=== PATIENT | female | born 1990 | race Caucasian/White ===

== ENCOUNTER 2021-02-08 07:00 | Day surgery (SDC) | payer BC, OTHER ==
[~2021-02-08 07:00] MED LIST: Lactated Ringers 1,000 ML IV SCH; Lidocaine 1%/Sod Bicarbonate in NS 8.4% 1 ML Syringe IDERM PRN; Sodium Chloride 0.9% 10 ML Syringe FLUSH PRN
[2021-02-08] MEDS ORDERED: Lidocaine 1% with EPINEPHrine 1:100,000 10 ML MDV ONE ×2 (07:25→07:28)
[2021-02-08] MEDS ORDERED: Lidocaine 1% 30 ML SDV ONE (07:28)
--- NOTE | 2021-02-08 07:42 | PCM.PREANE ---
Preanesthetic Assessment - Procedure Proposed Procedure: cold knife cone biopsy - Anesthesia/Transfusion/Family Hx Anesthesia History: Prior Anesthesia Without Reaction Family History of Anesthesia Reaction: No Transfusion History: No Prior Transfusion(s) Intubation History: Unknown - Review of Systems General: No Symptoms Pulmonary: No Symptoms Cardiovascular: No Symptoms Gastrointestinal: No Symptoms Neurological: No Symptoms Other: Reports: None - Physical Assessment NPO Status Date: 02/07/21 NPO Status Time: 21:00 Vital Signs: Last Vital Signs Temp 36.3 C 02/08/21 07:10 Pulse 75 02/08/21 07:10 Resp 17 02/08/21 07:10 BP 141/87 H 02/08/21 07:10 Pulse Ox 97 02/08/21 07:10 Height: 1.55 m Weight: 99 kg ASA Class: 3 Mental Status: Alert & Oriented x3 Airway Class: Mallampati = 2 Dentition: Reports: Normal Dentition Thyro-Mental Finger Breadths: 3 Mouth Opening Finger Breadths: 5 ROM/Head Extension: Full - Allergies Allergies/Adverse Reactions: Allergies Allergy/AdvReac Type Severity Reaction Status Date / Time Penicillins Allergy Other Verified 02/07/21 14:52 - Blood Blood Available: No - Anesthesia Plan Pre-Op Medication Ordered: None - Acknowledgements Anesthesia Type Planned: MAC Pt an Appropriate Candidate for the Planned Anesthesia: Yes Alternatives and Risks of Anesthesia Discussed w Pt/Guardian: Yes Pt/Guardian Understands and Agrees with Anesthesia Plan: Yes PreAnesthesia Questionnaire HEENT History: Reports: Impaired Vision Cardiovascular History: Reports: None Respiratory History: Reports: Asthma Gastrointestinal History: Reports: None Genitourinary History: Reports: Other (See Below) Other Genitourinary History: HPV, RENAY III, genital warts [employer] History: Reports: Polycystic Ovaries, , Other (See Below) Other OB/BYN History: gestational hypertension Musculoskeletal History: Reports: None Neurological History: Reports: None Psychiatric History: Reports: None Endocrine/Metabolic History: Reports: None Hematologic History: Reports: None Immunologic History: Reports: None Oncologic (Cancer) History: Reports: None Dermatologic History: Reports: None - Infectious Disease History Infectious Disease History: Reports: None - Past Surgical History Head Surgeries/Procedures: Reports: None HEENT Surgical History: Reports: Myringotomy w Tube(s), Oral Surgery Cardiovascular Surgical History: Reports: None Respiratory Surgical History: Reports: None GI Surgical History: Reports: None Female Surgical History: Reports: Section Male Surgical History: Reports: None Endocrine Surgical History: Reports: None Neurological Surgical History: Reports: None Musculoskeletal Surgical History: Reports: None Oncologic Surgical History: Reports: None Dermatological Surgical History: Reports: None - SUBSTANCE USE Tobacco Use Status *Q: Never Tobacco User Recreational Drug Use History: No - HOME MEDS Home Medications: Home Meds Berberine 1 tab PO BID 02/07/21 [History] Ibuprofen 600 mg PO Q4H PRN 02/07/21 [History] cycloSPORINE [Restasis Multidose] 1 dose EYEBOTH BID 02/07/21 [History] prednisoLONE acetate [Pred Forte 1% Ophth Susp] 1 dose EYEBOTH BID PRN 02/07/21 [History] - CURRENT (IN HOUSE) MEDS Current Meds: Current Medications Lactated Ringer's (Ringers, Lactated) 1,000 mls @ 125 mls/hr IV ASDIRECTED DINORAH Stop: 02/08/21 23:00 Lidocaine/Sodium Bicarbonate (Lidocaine 1%/Sod Bicarbonate In Ns 8.4% 1 Ml Syringe) 0.25 ml IDERM ONETIME PRN PRN Reason: Prior to IV Start Stop: 02/08/21 18:00 Sodium Chloride (Sodium Chloride 0.9% 10 Ml Syringe) 10 ml FLUSH ASDIRECTED PRN PRN Reason: Keep Vein Open Stop: 02/08/21 18:00 Discontinued Medications Lidocaine HCl (Lidocaine 1% 30 Ml Sdv) Confirm Administered Dose 30 ml .ROUTE .STK-MED ONE Stop: 02/08/21 07:29 Lidocaine/Epinephrine (Lidocaine 1% With Epinephrine 1:100,000 10 Ml Mdv) Confirm Administered Dose 10 ml .ROUTE .STK-MED ONE Stop: 02/08/21 07:26 Lidocaine/Epinephrine (Lidocaine 1% With Epinephrine 1:100,000 10 Ml Mdv) Confirm Administered Dose 20 ml .ROUTE .STK-MED ONE Stop: 02/08/21 07:29
--- NOTE | 2021-02-08 07:42 | PCM.OPNOTE ---
- General Post-Op/Procedure Note Date of Surgery/Procedure: 02/08/21 Operative Procedure(s): Cold Knife Cone Biopsy Findings: Exam shows relatively normal appearance of cervix. Minimal AWE noted. IUD strings noted. Pre Op Diagnosis: RENAY III Post-Op Diagnosis: RENAY III Anesthesia Technique: MAC Primary Surgeon: Louisa Fermin Anesthesia Provider: Kandi Kaplan Pathology: Cervical cone biopsy specimen Output, Urine Amount: 0 (Voided prior to case ) EBL in mLs: 20 Complications: None Condition: Good Free Text/Narrative:: The risks, benefits, indications, potential complications, and alternatives were explained to the patient and informed consent obtained. Patient was brought to the OR where anesthesia was induced without difficulty. She was placed in a dorsal lithotomy position and prepped and draped in the typical fashion. A sterile speculum was placed into the vagina. Acetic acid soaked gauze were placed next to the cervix and vagina. These were removed showing area of acetowhite epithelium to be excised. Next a paracervical block was performed using 10 cc of 1% Lidocaine. Next, 6 cc of 1% lidocaine with dilute epinephrine were injected into the cervical bed. Two suture of 1 vicryl were placed at the 3:00 and 9:00 positions. A scalpel was used to sharply excise area of acetowhite epithelium. Specimen was marked at the 12:00 position with a suture. Cautery was then used along the cervical bed to obtain hemostasis. Lastly, Monsel's solution was placed along the cervix. Area appeared hemostatic. The sutures of Vicryl were cut. Patient was awoken and taken to recovery in a stable condition.
[2021-02-08] MEDS ORDERED: fentaNYL 100 MCG/2 ML SDV ONE (07:45)
[2021-02-08] MEDS ORDERED: Propofol 200 MG/20 ML SDV ONE (07:46)
[2021-02-08] MEDS ORDERED: Lidocaine 1% 4 ML ONE (07:46)
[2021-02-08] MEDS ORDERED: Midazolam 1 MG/ML 2 ML SDV ONE (07:46)
[2021-02-08] MEDS ORDERED: ceFAZolin 1 GM Vial ONE (07:55)
[2021-02-08] MEDS ORDERED: Ondansetron 4 MG/2 ML SDV ONE (08:02)
[2021-02-08] MEDS ORDERED: Ketorolac 30 MG/ML SDV ONE (08:02)
[2021-02-08] MEDS ORDERED: Ketamine 500 mg/10 ML MDV ONE (08:16)
--- NOTE | 2021-02-08 08:37 | PCM48HPAN ---
Post Anesthesia Note - EVALUATION WITHIN 48HRS OF ANESTHETIC Vital Signs in Normal Range: Yes Patient Participated in Evaluation: Yes Respiratory Function Stable: Yes Airway Patent: Yes Cardiovascular Function Stable: Yes Hydration Status Stable: Yes Pain Control Satisfactory: Yes Nausea and Vomiting Control Satisfactory: Yes Mental Status Recovered: Yes Vital Signs: Last Vital Signs Temp 36.4 C 02/08/21 08:25 Pulse 71 02/08/21 08:25 Resp 15 02/08/21 08:25 BP 156/97 H 02/08/21 08:25 Pulse Ox 98 02/08/21 08:25
[2021-02-08] MEDS ORDERED: fentaNYL 100 MCG/2 ML SDV IVPUSH PRN (09:14)
[2021-02-08] MEDS ORDERED: Ondansetron 4 MG/2 ML SDV IVPUSH PRN (09:14)
[2021-02-08] MEDS ORDERED: HYDROmorphone 0.5 MG/0.5 ML Syringe IVPUSH PRN (09:14)
== END 2021-02-08 09:21 | disposition home or self-care (01) ==
LOC: JD.SDS 07:00
PROVIDERS: ATTEND Obstetrics & Gynecology
DX: D06.9 Carcinoma in situ of cervix, unspecified (principal); J45.909 Unspecified asthma, uncomplicated; Z98.890 Other specified postprocedural states; Z88.0 Allergy status to penicillin; Z79.899 Other long term (current) drug therapy
CPT/HCPCS: 36415; 57520; 80048; 81025; 85025; J0690; J1885; J2250; J2405; J2704; J3010; J7120; 00940

== ENCOUNTER 2025-02-23 06:34 | Day surgery (SDC) | payer OTHER ==
[~2025-02-23 06:34] MED LIST changes: -Lactated Ringers 1,000 ML IV SCH; -Lidocaine 1%/Sod Bicarbonate in NS 8.4% 1 ML Syringe IDERM PRN; +Midazolam 1 MG/ML 2 ML SDV ONE; +Propofol 200 MG/20 ML SDV ONE; +Sodium Chloride 0.9% 10 ML Syringe FLUSH SCH; +dexmedeTOMIDine HCl 200 MCG/2 ML SDV ONE; +droPERidol 2.5 MG/ML SDV ONE; +fentaNYL 250 MCG/5 ML SDV ONE
[2025-02-23] MEDS ORDERED: Phenylephrine 1% 10 MG/ML SDV ONE (06:39)
[2025-02-23] MEDS ORDERED: Dexamethasone 4 MG/ML 5 ML MDV ONE (06:54)
[2025-02-23] MEDS: Lactated Ringers 1,000 ML IV SCH (06:55)
[2025-02-23] MEDS ORDERED: Lactated Ringers 1,000 ML ONE (06:57)
[2025-02-23] MEDS ORDERED: propofoL 1,000 MG/100 ML 100 ML ONE (06:57)
[2025-02-23 07:06] LABS: BASOPHILS ABSOLUTE AUTO 0.0 K/mm3 (0.0-0.2); BASOPHILS PERCENT AUTO 0.6 % (0.0-1.0); EOSINOPHILS ABSOLUTE AUTO 0.0 K/mm3 (0.0-0.4); EOSINOPHILS PERCENT AUTO 0.6 % (0.0-6.0); IMMATURE GRAN ABSOLUTE AUTO 0.01 K/mm3 (0.00-0.05); IMMATURE GRAN PERCENT AUTO 0.2 % (0.0-0.4); LYMPHOCYTES ABSOLUTE AUTO 2.6 K/mm3 (1.0-4.8); LYMPHOCYTES PERCENT AUTO 41.2 % (24.0-44.0); MEAN PLATELET VOLUME 9.5 fl (9.4-12.3); MONOCYTES ABSOLUTE AUTO 0.3 K/mm3 (0.0-0.8); MONOCYTES PERCENT AUTO 5.3 % (0.0-8.0); NEUTROPHILS ABSOLUTE AUTO 3.3 K/mm3 (1.8-7.7); NEUTROPHILS PERCENT AUTO 52.1 % (41.0-71.0); NRBC ABSOLUTE 0.00 (0.00-0.02); NRBC PERCENT 0.0 % (0.0-0.2); PLATELET COUNT,PLT 278 K/mm3 (150-400); RED BLOOD CELL COUNT 4.88 M/mm3 (4.10-5.30); WHITE BLOOD CELL COUNT,WBC 6.28 K/mm3 (3.9-11.3)
[2025-02-23 07:24] LABS: BLOOD UREA NITROGEN,BUN 14.0 mg/dL (7-18); CARBON DIOXIDE,CO2 27.0 mEq/L (21-32); CHLORIDE,CL 107.0 mEq/L (98-107); CREATININE 0.7 mg/dL (0.55-1.02); EST CRCL DRUG DOSING (CG) 93.64 mL/min; ESTIMATED GFR 116.0 mL/min (>60); GLUCOSE RANDOM 79.0 mg/dL (70-99); POTASSIUM,K 4.3 mEq/L (3.5-5.1); SODIUM,NA 144.0 mEq/L (136-145)
[2025-02-23] MEDS ORDERED: Ketorolac 30 MG/ML SDV ONE (07:53)
[2025-02-23] MEDS ORDERED: Ondansetron 4 MG/2 ML SDV IVPUSH PRN (07:58)
[2025-02-23] MEDS ORDERED: fentaNYL 100 MCG/2 ML SDV IVPUSH PRN (07:58)
[2025-02-23] MEDS: Lidocaine 1% with EPINEPHrine 1:100,000 20 ML MDV ONE (08:09)
== END 2025-02-23 11:01 | disposition home or self-care (01) ==
LOC: JD.SDS 06:34
PROVIDERS: ATTEND Obstetrics & Gynecology
DX: N87.9 Dysplasia of cervix uteri, unspecified (principal); N80.03 Adenomyosis of the uterus; N72 Inflammatory disease of cervix uteri; N88.8 Other specified noninflammatory disorders of cervix uteri; N73.6 Female pelvic peritoneal adhesions (postinfective); Z88.0 Allergy status to penicillin; Z79.899 Other long term (current) drug therapy
CPT/HCPCS: 36415; 58552; 80048; 81025; 85025; 86850; 86900; 86901; A9270; J0665; J0690; J1100; J1790; J1885; J2003; J2004; J2250; J2371; J2704; J3010; J7120; 00944; J3490